=== PATIENT | male | born 1980 | race Caucasian/White ===

== ENCOUNTER 2017-06-03 16:35 | Inpatient (IN) | payer BC ==
[~2017-06-03] VITALS: Ht 193 cm; Wt 126.6 kg
[2017-06-03 16:40] VITALS: BP 124/79
--- NOTE | 2017-06-03 17:16 | NUR ---
Patient ambulated to bed 4 with family. RN evaluating patient at bedside.
--- NOTE | 2017-06-03 17:25 | NUR ---
37M BIB FAMILY C/O DIZZINESS X 4 DAYS; PT AA&OX4, PERRLA AT THIS TIME; PT STATES NO VISION LOSS OR VISION CHANGES AT THIS TIME; PT C/O THROBBING HEADACHE, RADIATES DOWN BACK OF HEAD, 6/10 X 4 DAYS; PT STATES NO TRAUMA OR INJURY TO SITE AT THIS TIME; PT C/O NAUSEA, BUT STATES NO VOMITING OR DIARRHEA AT THIS TIME; ABDOMEN SOFT, NON-TENDER, ACTIVE BOWEL SOUNDS X 4 QUADRANTS; BL LUNG SOUNDS CLEAR, RR EVEN/UNLABORED, SKIN IS WARM/DRY/INTACT AT THIS TIME; PT RESTING IN BED WITH HOB ELEVATED AND IN LOWEST POSITION; POSITIONED FOR COMFORT; ER MD MADE AWARE OF STATUS. WILL CONTINUE TO MONITOR.
[2017-06-03] MEDS ORDERED: MECLIZINE 25 MG TAB PO ONE (17:30)
[2017-06-03] MEDS ORDERED: ONDANSETRON 4 MG ODT PO ONE (17:30)
--- NOTE | 2017-06-03 17:43 | NUR ---
Gaurav cruz in [facility] - 06/03/17 at 1743 by MED1 PT BACK FROM CT
--- NOTE | 2017-06-03 17:43 | NUR ---
PT RETURNED FROM CT VIA W/C ACCOMPANIED BY DIRECTOR OF HEAD START.
--- NOTE | 2017-06-03 18:19 | NUR ---
PT STATES HEADACHE 04/06 AT THIS TIME; PT REFUSES PAIN MEDICATION AT THIS TIME; PT STATES " I'M GOOD. I'D RATHER NOT TAKE ANYTHING"; LORRAINE PERRY NOTIFIED. Addendum: 06/03/17 at 1822 by MEDClipMine POSITIONED FOR COMFORT; WILL CONTINUE TO MONITOR.
[2017-06-03] MEDS ORDERED: NACL 0.9% 1,000 ML IV ONE (18:40)
[2017-06-03] MEDS ORDERED: DIAZEPAM PFS 10 MG/2 ML SYR IVP ONE (18:40)
[2017-06-03] MEDS: NACL 0.9% 1,000 ML IV SCH (19:04)
[2017-06-03] MEDS ORDERED: ONDANSETRON 4 MG/2 ML VIAL IM/IVP PRN (19:05)
[2017-06-03] MEDS ORDERED: MORPHINE SULFATE 2 MG/ML SYR IVP PRN (19:05)
[2017-06-03] MEDS ORDERED: DOCUSATE SODIUM 100 MG GELCAP PO PRN (19:05)
[2017-06-03] MEDS ORDERED: HYDROcodone/APAP 7.5/325 MG 1 TAB PO PRN (19:05)
[2017-06-03] MEDS ORDERED: ACETAMINOPHEN 325 MG TAB PO PRN (19:05)
--- NOTE | 2017-06-03 19:06 | NUR ---
CALLED [facility] TO GIVE REPORT; MST STATES RADHA CLAY TO CALL BACK FOR REPORT.
--- NOTE | 2017-06-03 19:11 | NUR ---
REPORT GIVEN TO RADHA CLAY.
--- NOTE | 2017-06-03 19:19 | NUR ---
Patient will be admitted to care of DR. SAVAGE. Admited to TELEMETRY. Will go to room 111B. Belongings list completed. Report to RADHA CLAY.
[2017-06-03 19:56] LABS: BASOPHILS # (AUTO) 0.4 K/uL (0.00-0.22); EOSINOPHILS # (AUTO) 0.2 K/uL (0-0.4); HEMATOCRIT 43.4 % (36-52); HEMOGLOBIN 14.4 g/dL (12.0-18.0); LYMPHOCYTES # (AUTO) 1.6 K/uL (2.0-11.5); MEAN CORPUSCULAR HEMOGLOBIN 29 pg (27-31); MEAN CORPUSCULAR HGB CONC 33 g/dL (33-37); MEAN CORPUSCULAR VOLUME 88 fL (80-94); MONOCYTES # (AUTO) 0.4 K/uL (0.8-1.0); NEUTROPHILS # (AUTO) 5.6 K/uL (1.8-7.7); PLATELET COUNT (AUTO) 283 K/uL (140-450); RED BLOOD CELL COUNT(AUTO) 4.96 MIL/uL (4.20-6.10); RED CELL DISTRIBUTION WIDTH 12.7 % (11.6-13.7); WHITE BLOOD COUNT (AUTO) 8.2 K/uL (4.8-10.8)
--- NOTE | 2017-06-03 20:00 | NUR ---
PT ADMITTED TO THE UNIT FROM ED, PATIENT ARRIVED VIA GURNEY, PATIENT ABLE TO AMBULATE TO BED, STEADY GAIT NOTED, PT IS AAO X4 ON ROOM AIR, NO SOB OR SIGN OF DISTRESS. PT STATES HE GETS A LITTLE DIZZY WHEN AMBULATING, FALL RISK PROTOCOL IN PLACE, WRIST BAND ON. SKIN INTACT, PT DENIES PAIN AT THIS TIME. ORIENTED PATIENT TO ROOM AND SURROUNDINGS, TELE MONITOR APPLIED. DISCUSSED PLAN OF CARE WITH PT. PT VERBALIZED UNDERSTANDING, CALL LIGHT WITHIN REACH. WILL CONTINUE TO MONITOR.
[2017-06-03 20:11] LABS: ANION GAP 7.1 (8-16); CALCIUM 7.9 mg/dL (8.5-10.1); CARBON DIOXIDE 30.5 mmol/L (21-32); POTASSIUM 3.6 mmol/L (3.5-5.1)
[2017-06-03 20:13] LABS: INR 1.1 (0.8-1.2); PARTIAL THROMBOPLASTIN TIME 26.4 secs (22-35.6)
[2017-06-03 20:27] LABS: CHOL/HDL RATIO 7.4 (1-4.5); FREE T4 (FREE THYROXINE) 0.93 ng/dL (0.76-1.46); MAGNESIUM 1.8 mg/dL (1.8-2.4); PHOSPHORUS 3.2 mg/dL (2.5-4.9); THYROID STIMULATING HORMONE 2.06 uIU/mL (0.34-3.74)
[2017-06-03 20:30] VITALS: BP 113/69
--- NOTE | 2017-06-03 22:00 | NUR ---
PT RESTING IN BED, NO SOB OR SIGN OF DISTRESS, CALL LIGHT WITHIN REACH. WILL CONTINUE TO MONITOR.
[2017-06-04] VITALS: BP 101/59
--- NOTE | 2017-06-04 00:15 | NUR ---
VITAL SIGNS STABLE, NO SOB OR SIGN OF DISTRESS AT THIS TIME, CALL LIGHT WITHIN REACH. WILL CONTINUE TO MONITOR.
[2017-06-04] MEDS: NACL 0.9% 1,000 ML IV SCH ×2 (01:55→07:24)
--- NOTE | 2017-06-04 02:00 | NUR ---
PT SLEEPING, NO SIGN OF DISTRESS, CALL LIGHT WITHIN REACH. WILL CONTINUE TO MONITOR
[2017-06-04 04:00] VITALS: BP 129/72
--- NOTE | 2017-06-04 04:15 | NUR ---
VITAL SIGNS STABLE, NO SIGN OF DISTRESS, CALL LIGHT WITHIN REACH. WILL CONTINUE TO MONITOR.
[2017-06-04 07:04] LABS: BASOPHILS # (AUTO) 0.1 K/uL (0.00-0.22); BASOPHILS % (AUTO) 2.1 % (0.0-2.0); EOSINOPHILS # (AUTO) 0.1 K/uL (0-0.4); EOSINOPHILS % (AUTO) 1.4 % (0.0-4.0); HEMATOCRIT 43.2 % (36-52); HEMOGLOBIN 14.4 g/dL (12.0-18.0); LYMPHOCYTES # (AUTO) 2.1 K/uL (2.0-11.5); LYMPHOCYTES % (AUTO) 29.9 % (20.5-51.1); MEAN CORPUSCULAR HEMOGLOBIN 29 pg (27-31); MEAN CORPUSCULAR HGB CONC 33 g/dL (33-37); MEAN CORPUSCULAR VOLUME 88 fL (80-94); MONOCYTES # (AUTO) 0.4 K/uL (0.8-1.0); MONOCYTES % (AUTO) 6.3 % (1.7-9.3); NEUTROPHILS # (AUTO) 4.2 K/uL (1.8-7.7); NEUTROPHILS % (AUTO) 60.3 % (42.2-75.2); PLATELET COUNT (AUTO) 256 K/uL (140-450); RED BLOOD CELL COUNT(AUTO) 4.93 MIL/uL (4.20-6.10); RED CELL DISTRIBUTION WIDTH 12.4 % (11.6-13.7); WHITE BLOOD COUNT (AUTO) 6.9 K/uL (4.8-10.8)
[2017-06-04 07:22] LABS: ANION GAP 10.3 (8-16); CARBON DIOXIDE 26.9 mmol/L (21-32); POTASSIUM 4.2 mmol/L (3.5-5.1)
[2017-06-04 07:27] LABS: MAGNESIUM 1.9 mg/dL (1.8-2.4)
--- NOTE | 2017-06-04 07:27 | NUR ---
ENDORSED PATIENT TO DAY RN AT BEDSIDE, PT IN STABLE CONDITION
--- NOTE | 2017-06-04 07:30 | NUR ---
RECEIVED PT IN BED. AWAKE. ALERT ORIENTEDX 4. NO SOB NOTED. DENIES ANY PAIN OR DISCOMFORT NOTED AT THIS TIME. POSITIVE BOWEL SOUNDS NOTED ON FOUR QUADRANTS. PT AMBULATORY. SAFETY PRECAUTION IN PLACE. CALL LIGHT WITHIN REACH.
[2017-06-04 08:00] VITALS: BP 91/58
--- NOTE | 2017-06-04 08:00 | NUR ---
Patient's Plan of Care was discussed and reviewed with CHRISTIANA: GRACIELA VILLEDA.
--- NOTE | 2017-06-04 08:31 | NUR ---
PATIENT HAS BEEN SCREENED AND CATEGORIZED HIGH NUTRITION RISK. PATIENT WILL BE SEEN WITHIN 1-2 DAYS OF ADMISSION. 06/04/17-06/05/[address]
[2017-06-04 08:38] LABS: T4 (THYROXINE) 6.6 ug/dL (4.5-12.0)
[2017-06-04] MEDS ORDERED: CALCIUM CARB/VIT-D 500 MG/200 IU 1 TAB PO SCH (09:00)
[2017-06-04] MEDS ORDERED: ASPIRIN 81 MG TAB.CHEW PO SCH (10:00)
[2017-06-04 12:00] VITALS: BP 127/74
--- NOTE | 2017-06-04 14:02 | NUR ---
FAXED INITIAL REVIEW TO DANY WREN [phone] PHONE [phone] NO MASTER COSMETOLOGIST ASSIGNED YET. REFERENCE NUMBER IS [id number]
--- NOTE | 2017-06-04 14:05 | NUR ---
06/04/17 RD INITIAL ASSESSMENT COMPLETED PLEASE REFER TO NUTRITION ASSESSMENT UNDER CARE ACTIVITY FOR ESTIMATED NUTRITIONAL NEEDS. 1. CONSIDER SWITCH FROM REGULAR DIET TO LOW FAT DIET 2. PROVIDE NUTRITION THERAPY EDUCATION NEEDED 3. RD TO FOLLOW UP 3-5 DAYS; MODERATE RISK PEPE BALTAZAR, SCOUT
--- NOTE | 2017-06-04 14:25 | NUR ---
RECEIVED ORDER TO TRANSFER PATIENT FOR HIGHER LEVEL OF CARE. CALLED BETH AT [facility], NO TELEMETRY BEDS CALLED [facility] AND SPOKE WITH DEYSI. GAVE HIM SOME INFORMATION. AT PRESENT NO TELEMETRY BEDS.
[2017-06-04 16:00] VITALS: BP 120/68
--- NOTE | 2017-06-04 16:11 | NUR ---
FAXED FACE SHEET, ORDER AND CT RESULTS TO [facility]. [phone].
--- NOTE | 2017-06-04 16:50 | NUR ---
CALLED [facility] AND SPOKE WITH KATERINA IN ADMITTING. THEY ARE WAITING FOR AN ACCEPTING PHYSICIAN. SHE SAID I SHOULD CALL THE ER AND GET THE NAME OF THE HOSPITALIST FOR OUR PHYSICIAN TO CALL. THE HOSPITALIST IS DR. HOOVER, PHONE [phone]. I CALLED DR. SANTANA AND GAVE HER THE PHONE NUMBER. PER KATERINA REQUEST IN ADMITTING, I FAXED THE FACE SHEET, ORDER AND TRANSFER BACK AGREEMENT TO HER AT [phone]. I GAVE HER THE PHONE NUMBER TO THE FLOOR WHEN [facility] GETS A BED.
[2017-06-04] MEDS ORDERED: MECLIZINE 25 MG TAB PO PRN (18:20)
--- NOTE | 2017-06-04 18:27 | NUR ---
MECLIZINE PULLED FROM [facility] PER ORDER GIVEN TO CHRISTIANA OWENS FOR ADMINSITRATION.
--- NOTE | 2017-06-04 19:30 | NUR ---
RECEIVED REPORT FROM DAY RN AT BEDSIDE, PATIENT IS AAOX4 ON ROOM AIR, NO SOB OR SIGN OF DISTRESS AT THIS TIME. PT DENIES PAIN, SKIN INTACT, PT STATES HE IS A LITTLE DIZZY BUT FEELS BETTER AFTER RECEIVING SOME MEDICINE. DISCUSSED PLAN OF CARE WITH PT, PT VERBALIZED UNDERSTANDING. SAFETY MEASURES CHECKED, CALL LIGHT WITHIN REACH. WILL CONTINUE TO MONITOR.
--- NOTE | 2017-06-04 19:45 | NUR ---
PT KEPT, CLEAN DRY AND COMFORTABLE, NEEDS ATTENDED, ENDORSED TO NEXT SHIFT BY GRACIELA VILLEDA, ON STABLE CONDITION, FOR CONTINUITY OF CARE.
[2017-06-04 20:00] VITALS: BP 118/67
--- NOTE | 2017-06-04 20:48 | NUR ---
RECEIVED CALL FROM TOMI FROM [facility], THEY HAVE BED AVAILABLE FOR PATIENT. BED #424. WILL CALL REPORT TO THE 4TH FLOOR AT [phone] [phone]
[2017-06-04] MEDS ORDERED: SIMVASTATIN 20 MG TAB PO SCH (21:00)
--- NOTE | 2017-06-04 21:08 | NUR ---
CALLED REPORT TO MANA KENNEY RN AT [facility], PT TO GO TO BED 424. TRANSPORT TO BE SET UP.
--- NOTE | 2017-06-04 22:10 | NUR ---
PATIENT PICKED UP FOR TRANSPORT TO [place]. PT IS ALERT AND ORIENTED AND IN STABLE CONDITION. BELONGINGS ARE IN PATIENTS POSSESSION, WRIST BANDS REMOVED, TELE MONITOR REMOVED, ALL PAPERWORK SIGNED.
[2017-06-05] MEDS ORDERED: ASPIRIN 81 MG TAB.CHEW PO SCH (09:00)
== END 2017-06-04 22:10 | disposition short-term general hospital (02) | DRG 66 ==
LOC: MED 16:35 → MTU 19:10
PROVIDERS: ADMIT Family Medicine; ATTEND Family Medicine
DX: I63.9 Cerebral infarction, unspecified (principal); G90.9 Disorder of the autonomic nervous system, unspecified; E78.5 Hyperlipidemia, unspecified; H93.11 Tinnitus, right ear; E66.9 Obesity, unspecified; E11.65 Type 2 diabetes mellitus with hyperglycemia; Z88.6 Allergy status to analgesic agent; Z68.34 Body mass index [BMI] 34.0-34.9, adult
CPT/HCPCS: 36415; 70450; 80048; 82040; 82150; 83036; 83690; 83735; 83880; 84100; 84436; 84439; 84443; 84479; 84484; 85025; 85610; 85730; 87081; 93005; 93880; J3360; J7030; J8597; S0119

== ENCOUNTER 2019-02-18 14:53 | Emergency (ER) | payer SELFPAY ==
[~2019-02-18] VITALS: Ht 188 cm; Wt 141.1 kg
[2019-02-18 15:00] VITALS: BP 145/79
--- NOTE | 2019-02-18 15:05 | NUR ---
BIBA. AAO X 4. C/O RANGEL HAND NUMBNESS X 5 DAYS. PT STATES R SIDE 6/10 DULL THROBBING TO R LATERAL WRIST. +MOVEMENT TO BOTH ARMS, CAP REFILL < 3 SECS. PERRLA, BRISK 3 MM. EQUAL RANGEL STRENGTH TO UPPER AND LOWER EXTREMITIES. DENIES DIZZINES, N/V. HOB UP. BED SIDE RAILS UP X1. ON LOW BED POSITION, LOCKED. ER MADE AWARE OF PT STATUS.
--- NOTE | 2019-02-18 15:07 | NUR ---
RESIDENT DOCTOR AT BEDSIDE FOR PT EVALUATION.
[2019-02-18] MEDS ORDERED: IBUPROFEN 600 MG TAB PO ONE (15:30)
--- NOTE | 2019-02-18 15:42 | NUR ---
RADIOLOGY AT BEDSIDE.
--- NOTE | 2019-02-18 17:29 | NUR ---
PLACED A FABRICATED WRIST SPLINT ON BOTH LEFT AND RIGHT WRIST OF PT.
[2019-02-18 17:38] VITALS: BP 138/72
--- NOTE | 2019-02-18 17:38 | NUR ---
Patient discharged with v/s stable. Written and verbal after care instructions given and explained. Patient alert, oriented and verbalized understanding of instructions. Ambulatory with steady gait. All questions addressed prior to discharge. ID band removed. Patient advised to follow up with PMD. Rx of Prednisone, Naprosyn given. Patient educated on indication of medication including possible reaction and side effects. Opportunity to ask questions provided and answered.
== END 2019-02-18 17:38 | disposition home or self-care (01) ==
LOC: MED 14:53
DX: G56.03 Carpal tunnel syndrome, bilateral upper limbs (principal); F17.210 Nicotine dependence, cigarettes, uncomplicated; Z88.5 Allergy status to narcotic agent
CPT/HCPCS: 29125; 73110; 99283; Q0092

== ENCOUNTER 2019-07-28 13:32 | Emergency (ER) | payer MEDICAID ==
[~2019-07-28] VITALS: Ht 188 cm; Wt 134.3 kg
[2019-07-28 13:50] VITALS: BP 123/78
[2019-07-28] MEDS: cefTRIAXone 1,000 MG in LIDOCAINE MPF 1% 2.1 ML IM ONE (14:31)
[2019-07-28] MEDS: KETOROLAC 30 MG/ML VIAL IM ONE (14:31)
[2019-07-28 14:49] VITALS: BP 131/86
== END 2019-07-28 14:49 | disposition home or self-care (01) ==
LOC: MED 13:32
DX: L03.317 Cellulitis of buttock (principal); Z88.5 Allergy status to narcotic agent
CPT/HCPCS: 96372; 99283; J0696; J1885; J2001

== ENCOUNTER 2019-08-03 18:44 | Emergency (ER) | payer MEDICAID ==
[~2019-08-03] VITALS: Ht 190.5 cm; Wt 133.4 kg
--- NOTE | 2019-08-03 19:10 | NUR ---
CALLED PT FROM LOBBY, PT NOT PRESENT
--- NOTE | 2019-08-03 19:17 | NUR ---
PT CALLED IN LOBBY AND OUTSIDE WITH NO ANSWER.
[2019-08-03 19:30] VITALS: BP 139/99
--- NOTE | 2019-08-03 19:37 | NUR ---
PT AMBULATED TO LOBBY WITH VSS.
--- NOTE | 2019-08-03 21:25 | NUR ---
PT C/O "BUG BITE" TO LEFT BUTTOCKS, DRY CRACKED , OPEN SKIN TO LEFT UPPER BUTT CHEEK NOTE. NO DRAINAGE, SWELLING OR BLEEDING. SEE DR MORGAN EXAM FOR FURTHER INFO.
[2019-08-03 21:42] VITALS: BP 132/88
== END 2019-08-03 21:43 | disposition home or self-care (01) ==
LOC: MED 18:44
DX: S30.860A Insect bite (nonvenomous) of lower back and pelvis, initial encounter (principal); L08.9 Local infection of the skin and subcutaneous tissue, unspecified; W57.XXXA Bitten or stung by nonvenomous insect and other nonvenomous arthropods, initial encounter; Y93.89 Activity, other specified; Y92.89 Other specified places as the place of occurrence of the external cause; Y99.8 Other external cause status
CPT/HCPCS: 99283

== ENCOUNTER 2021-06-30 13:54 | Emergency (ER) | payer MEDICAID, OTHER ==
[~2021-06-30] VITALS: Ht 190.5 cm; Wt 127.0 kg
[2021-06-30 14:13] VITALS: BP 139/77
--- NOTE | 2021-06-30 14:18 | NUR ---
PT TO AWAIT IN LOBBY
--- NOTE | 2021-06-30 16:07 | NUR ---
DR SAID EXAMINING PT IN TRIAGE
[2021-06-30] MEDS ORDERED: NACL 0.9% 1,000 ML IV ONE (16:15)
--- NOTE | 2021-06-30 16:20 | NUR ---
PT AMBULATED TO BED 04
--- NOTE | 2021-06-30 16:30 | NUR ---
41 Y MALE C/O LT SIDED PRESSURE/HEAVINESS X1 HR AGO AGO. DENIES ANY PAIN. PT STATED HE HAS FELT SOME DIZZINESS/LIGHTHEADNESS BUT DENIES ANY LOC. NIHSS NEGATIVE UPON ASSESSMENT. MEDHX: STROKE 4 YEARS AGO MARÍA
--- NOTE | 2021-06-30 16:39 | NUR ---
BLOOD COLLECTED BEDSIDE AND HANDED TO HEALTH INFORMATICS SPECIALIST
[2021-06-30 16:47] LABS: BASOPHILS # (AUTO) 0.1 K/uL (0.00-0.22); BASOPHILS % (AUTO) 0.9 % (0.0-2.0); EOSINOPHILS # (AUTO) 0.2 K/uL (0-0.4); EOSINOPHILS % (AUTO) 1.5 % (0.0-4.0); HEMATOCRIT 45.6 % (36-52); HEMOGLOBIN 15.4 g/dL (12.0-18.0); LYMPHOCYTES # (AUTO) 2.8 K/uL (2.0-11.5); LYMPHOCYTES % (AUTO) 27.6 % (20.5-51.1); MEAN CORPUSCULAR HEMOGLOBIN 30 pg (27-31); MEAN CORPUSCULAR HGB CONC 34 g/dL (33-37); MEAN CORPUSCULAR VOLUME 87.4 fL (80-94); MONOCYTES # (AUTO) 0.8 K/uL (0.8-1.0); MONOCYTES % (AUTO) 7.7 % (1.7-9.3); NEUTROPHILS # (AUTO) 6.4 K/uL (1.8-7.7); NEUTROPHILS % (AUTO) 62.3 % (42.2-75.2); PLATELET COUNT (AUTO) 380 K/uL (140-450); RED BLOOD CELL COUNT(AUTO) 5.22 MIL/uL (4.20-6.10); WHITE BLOOD COUNT (AUTO) 10.2 K/uL (4.8-10.8)
--- NOTE | 2021-06-30 16:54 | NUR ---
CONSENT FOR CT OBTAINED AND SIGNED BEDSIDE
--- NOTE | 2021-06-30 16:55 | NUR ---
PT TAKEN TO CT VIA FAM
[2021-06-30 17:06] LABS: PROTHROMBIN TIME 9.6 secs (10.8-13.4)
[2021-06-30 17:13] LABS: ALBUMIN 3.7 g/dL (3.4-5.0); ANION GAP 9.1 (8-16); CARBON DIOXIDE 29.4 mmol/L (21-32); MAGNESIUM 2.1 mg/dL (1.8-2.4); POTASSIUM 3.5 mmol/L (3.5-5.1); TOTAL BILIRUBIN 0.3 mg/dL (0.0-1.0)
--- NOTE | 2021-06-30 17:14 | NUR ---
pt returned to bed [address] [facility]
--- NOTE | 2021-06-30 18:21 | NUR ---
SAID BEDSIDE UPDATING PT ON STATUS
[2021-06-30] MEDS ORDERED: ASPIRIN 325 MG TAB PO ONE (18:35)
--- NOTE | 2021-06-30 18:40 | NUR ---
SUBMITTED REQUEST FOR TELE NEURO PER DR. ANTHONY.
--- NOTE | 2021-06-30 19:23 | NUR ---
Pt report given to RADHA SIMON. Transfer of care at this time.
--- NOTE | 2021-06-30 19:30 | NUR ---
PT IS RESTING. OPENS EYES TO SOUND. EQUAL RISE AND FALL OF CHEST WALL. PT IS IN STABLE CONDITION. BED LOCKED IN LOWEST POSITION, SIDE RAILS X2.
--- NOTE | 2021-06-30 22:31 | NUR ---
NIH SCORE 0
--- NOTE | 2021-06-30 22:40 | NUR ---
PT IS A&0 X4,SPEAKING ON THE PHONE WITH FAMILY. ALL NEEDS MET AT THIS TIME. BED LOCKED IN LOWEST POSITION, SIDE RAILS X2.
--- NOTE | 2021-06-30 23:20 | NUR ---
FRIEND AT BEDSIDE.
[2021-06-30] MEDS ORDERED: NICOTINE TRANSD SYS 14 MG/24 HR PATCH TD ONE (23:35)
--- NOTE | 2021-06-30 23:48 | NUR ---
CALLED AND GAVE REPORT TO RADHA SONI AT [facility].
--- NOTE | 2021-07-01 01:09 | NUR ---
PT IS RESTING. EQUAL RISE AND FALL OF CHEST WALL. VSS. ALL NEEDS MET AT THIS TIME. BED LOCKED IN LOWEST POSITION, SIDE RAILS X2.
--- NOTE | 2021-07-01 02:36 | NUR ---
PT IS AWAKE USING PHONE. ALL NEEDS MET AT THIS TIME.
[2021-07-01 03:15] VITALS: BP 117/76
== END 2021-07-01 03:40 | disposition short-term general hospital (02) ==
LOC: MED 13:54
DX: R51.9 Headache, unspecified (principal); F17.290 Nicotine dependence, other tobacco product, uncomplicated; Z86.73 Personal history of transient ischemic attack (TIA), and cerebral infarction without residual deficits
CPT/HCPCS: 36415; 70450; 80053; 83735; 85025; 85610; 93005; 96360; 96361; 99285; J7030